=== PATIENT | female | born 1965 | race Caucasian/White ===

== ENCOUNTER → 2016-07-22 13:47 | Outpatient (CLI) | payer MEDICAID ==
[~2016-07-22 13:47] MED LIST: HYDROCODONE-APA1 TAB PO; PRILOSEC20 MG PO; PRINIVIL20 MG PO; PROTONIX40 MG PO; TRIBENZOR 40-11 EAC1 PO; VICTOZA0.6 MG/0.1 SQ; ZANAFLEX4 MG PO
== END | disposition home or self-care (01) ==
LOC: D.CT 13:47
DX: J42 Unspecified chronic bronchitis (principal)

== ENCOUNTER 2018-11-20 09:00 | Outpatient (CLI) | payer MEDICAID ==
[2014-04-05 06:12] VITALS: BMI 58.8
== END 2018-11-20 09:30 | disposition home or self-care (01) ==
LOC: D.MAMMO 09:00
PROVIDERS: ATTEND Family Medicine
DX: Z12.31 Encounter for screening mammogram for malignant neoplasm of breast (principal)

== ENCOUNTER → 2019-01-23 12:14 | Outpatient (CLI) | payer MEDICARE ==
[~2019-01-23] VITALS: Ht 157.5 cm; Wt 156.5 kg
[2019-01-23 14:10] VITALS: Ht 157.5 cm; Wt 156.5 kg
== END | disposition home or self-care (01) ==
LOC: D.FANS 12-05 09:00
PROVIDERS: ATTEND Surgery
DX: E66.01 Morbid (severe) obesity due to excess calories (principal)

== ENCOUNTER → 2019-05-18 12:59 | Outpatient (CLI) | payer MEDICARE ==
[2019-01-23 14:10] VITALS: BMI 63.1
== END | disposition home or self-care (01) ==
LOC: D.RT 05-15 09:30
PROVIDERS: ATTEND Internal Medicine Pulmonary Disease
DX: R06.00 Dyspnea, unspecified (principal)